=== PATIENT | female | born 1980 | race Caucasian/White ===

== ENCOUNTER 2024-07-24 15:06 | Emergency (ER) | payer MEDICAID ==
[~2024-07-24] VITALS: Ht 165.1 cm; Wt 91.8 kg
[2024-07-24 17:16] LABS: BASOPHILS % (AUTO) 0.5 % (0-1); EOSINOPHILS # (AUTO) 0.1 X10'3 (0-0.9); EOSINOPHILS % (AUTO) 1.1 % (0-6); HEMATOCRIT 40.9 % (35.0-45.0); HEMOGLOBIN 13.8 g/dl (12.0-16.0); LYMPHOCYTES # (AUTO) 2.7 X10'3 (1.1-4.8); LYMPHOCYTES % (AUTO) 27.9 % (21-51); MEAN CORPUSCULAR HEMOGLOBIN 29.4 PG (27.0-31.0); MEAN CORPUSCULAR HGB CONC 33.8 g/dL (33.0-36.5); MEAN PLATELET VOLUME 7.6 FL (7.4-10.4); MONOCYTES # (AUTO) 0.6 X10'3 (0-0.9); MONOCYTES % (AUTO) 6.1 % (2-12); NEUTROPHILS # (AUTO) 6.2 X10'3 (1.8-7.7); NEUTROPHILS % (AUTO) 64.4 % (42-75); PLATELET COUNT 417 X10'3 (140-440); RED CELL DISTRIBUTION WIDTH 14.5 % (11.5-14.5); WHITE BLOOD COUNT 9.6 X10'3 (4.5-11.0)
[2024-07-24] MEDS ORDERED: LUMA42CA PO (17:35)
[2024-07-24] MEDS ORDERED: LISD10CA PO (17:35)
[2024-07-24] MEDS ORDERED: ESCI20TA39 PO (17:35)
[2024-07-24 17:39] LABS: ALBUMIN 4.1 G/DL (3.4-5.0); ANION GAP 10 (8-16); BLOOD UREA NITROGEN 14 MG/DL (7-18); BUN/CREATININE RATIO 19.2 (10.0-20.0); CALCIUM 9.4 MG/DL (8.5-10.1); CHLORIDE 105 MMOL/L (99-107); CREATININE 0.73 MG/DL (0.40-0.90); ETHANOL < 10 MG/DL (<10); GLUCOSE 94 MG/DL (70-104); POTASSIUM 3.8 MMOL/L (3.5-5.1); SODIUM 140 MMOL/L (135-145); THYROID STIMULATING HORMONE 2.64 ulU/ml (0.34-4.50); TOTAL CARBON DIOXIDE 24.9 MMOL/L (24-32); eCRCL 91 ML/MIN; eGFR 88 ML/MIN
[2024-07-24] MEDS: diphenhydrAMINE 50 mg/ml inj IM ONE (18:06)
[2024-07-24] MEDS: LORazepam 2 mg/ml vial IM ONE (18:06)
[2024-07-24] MEDS: haloperidol lactate 5mg/ml inj IM ONE (18:06)
[2024-07-24 18:18] LABS: BILIRUBIN,URINE NEGATIVE (Neg); CLARITY,URINE CLEAR (Clear); COLOR,URINE YELLOW (Yellow); GLUCOSE, URINE NEGATIVE (Neg); KETONES,URINE 15 mg/dl (Neg); LEUKOCYTE ESTERASE ,URINE NEGATIVE (Neg); NITRITES, URINE NEGATIVE (Neg); OCCULT BLOOD,URINE NEGATIVE (Neg); PH,URINE 7.5 (4.8-8.0); PROTEIN,URINE NEGATIVE (Neg); UROBILINOGEN,URINE 0.2 E.U/dL (0.2-1.0)
[2024-07-24 18:19] LABS: URINE HCG NEGATIVE (NEG)
[2024-07-24 18:20] LABS: UA COLLECTION TYPE VOIDED
[2024-07-24 18:33] LABS: URINE AMPHETAMINE SCREEN NEGATIVE (Neg); URINE BARBITUATE SCREEN NEGATIVE (Neg); URINE BENZODIAZEPINES SCREEN NEGATIVE (Neg); URINE CANNABINOID SCREEN POSITIVE (Neg); URINE COCAINE SCREEN NEGATIVE (Neg); URINE METHADONE SCREEN NEGATIVE (Neg); URINE OPIATE SCREEN NEGATIVE (Neg); URINE PHENCYCLIDINE SCREEN NEGATIVE (Neg)
[2024-07-24] MEDS: LUMATEPERONE TOSYLATE 21 MG PO SCH (19:22)
[2024-07-25 05:57] VITALS: BP 110/77; PULSE 53; TEMP 97.7; O2SAT 97
[2024-07-25] MEDS: lisdexamfetamine dimesylate 10mg capsule PO SCH (08:00)
[2024-07-25] MEDS: ESCITALOPRAM 10 mg tablet 10 MG TABLET PO SCH (08:27)
[2024-07-25 08:37] VITALS: RESP 15
== END 2024-07-25 14:03 | disposition home or self-care (01) ==
LOC: ER 15:07
DX: F41.9 Anxiety disorder, unspecified (principal); T78.8XXA Other adverse effects, not elsewhere classified, initial encounter; X58.XXXA Exposure to other specified factors, initial encounter; Z20.822 Contact with and (suspected) exposure to COVID-19
CPT/HCPCS: 36415; 80048; 80305; 80320; 81003; 81025; 84443; 85025; 87811; 96372; 99284; J1200; J1630; J2060